=== PATIENT | male | born 1995 | race Caucasian/White ===

== ENCOUNTER 2021-07-31 20:29 | Emergency (ER) | payer OTHER, SELFPAY ==
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
--- NOTE | ~2021-07-31 | XR_ITS ---
EXAMINATION: XR KNEE, LEFT CLINICAL INFORMATION: Left-sided knee pain COMPARISON: None TECHNIQUE: Four views of the left knee. FINDINGS: Bones and soft tissues are normal aside from a small joint effusion. No fracture . Alignment is anatomic. Joint spaces are well maintained. No abnormal soft tissue calcification. XR/XR knee LT 4V IMPRESSION: Small left knee joint effusion. Otherwise negative study.
[2021-07-31 20:44] VITALS: BP 147/86; BP 170/90; PULSE 110; PULSE 91; RESP 16; TEMP 37; O2SAT 100; O2SAT 96; BMI 27.3
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
[2021-07-31 21:22] LABS: MANUAL DIFF FLAG NO
[2021-07-31 21:24] LABS: Basophils Percent Auto 0.4 % (0-2); Eosinophils Absolute Auto 0.3 X10*3/uL (0.0-0.4); Eosinophils Percent Auto 3.8 % (0-4); Hematocrit 41.5 % (42.0-52.0); Hemoglobin 14.4 g/dl (14.0-18.0); Imm Gran Abs Auto 0.03 X10*3/uL (0.00-0.03); Imm Gran Pct Auto 0.4 % (0.0-0.4); Lymphocytes Absolute Auto 1.7 X10*3/uL (1.2-4.9); Mean Corpuscular HGB Conc 34.7 g/dl (31.0-36.0); Mean Corpuscular Hemoglobin 32.2 pg (27.0-33.0); Mean Corpuscular Volume 92.8 fL (80.0-98.0); Monocytes Absolute Auto 0.5 X10*3/uL (0.1-1.2); Monocytes Percent Auto 6.5 % (2-11); Neutrophils Absolute Auto 5.4 x10*3/uL (2.0-8.3); Neutrophils Percent Auto 67.9 % (45-73); Platelet Count 227 X10*3/uL (160-400); Red Blood Count 4.47 X10*6/uL (4.60-5.80); Red Cell Distribution Width 11.4 % (11.0-16.0)
[2021-07-31 21:37] LABS: Alanine Aminotransferase 12 U/L (0-40); Albumin Level 4.5 g/dL (3.5-5.0); Alkaline Phosphatase 74 U/L (39-117); Anion Gap 11 (12-20); Aspartate Amino Transferase 13 U/L (5-37); Bilirubin Total 0.6 mg/dL (0.0-1.0); Blood Urea Nitrogen 12 mg/dL (9-16); Calcium 9.3 mg/dL (8.4-10.2); Carbon Dioxide 25 mmol/L (22-29); Chloride 106 mmol/L (96-108); Creatinine Clr Calc Pharmacy 138.2; Estimated Glomerular Filt Rate > 60; Glucose Random 120 mg/dL (60-115); Magnesium 1.9 mg/dL (1.6-2.6); Potassium 3.3 mmol/L (3.3-5.1); Sodium 139 mmol/L (135-145); Total Protein 7.2 g/dL (6.5-8.0)
[2021-07-31 21:38] LABS: COVID-19 Test Negative (Negative)
[2021-07-31] MEDS: iohexoL 350 MG/ML 100 ML INFUS..BTL IV (22:12)
[2021-07-31] MEDS: Morphine Sulfate Immed Release 15 MG TABLET PO (23:10)
[2021-08-01 00:15] VITALS: BP 124/71; PULSE 65; RESP 16; O2SAT 100
[2021-08-01 00:35] VITALS: RESP 16
[2021-08-01] MEDS: Acetaminophen 325 MG TABLET 650 MG PO (00:35)
== END 2021-08-01 00:41 | disposition home or self-care (01) ==
PROVIDERS: Physician Assistant; Emergency Provider Internal Medicine
DX: S06.0X9A Concussion with loss of consciousness of unspecified duration, initial encounter (principal); S13.4XXA Sprain of ligaments of cervical spine, initial encounter; S29.012A Strain of muscle and tendon of back wall of thorax, initial encounter; S39.012A Strain of muscle, fascia and tendon of lower back, initial encounter; V43.52XA Car driver injured in collision with other type car in traffic accident, initial encounter; W22.11XA Striking against or struck by driver side automobile airbag, initial encounter; M25.462 Effusion, left knee; Y93.89 Activity, other specified; Y92.488 Other paved roadways as the place of occurrence of the external cause; Y99.9 Unspecified external cause status; Z20.822 Contact with and (suspected) exposure to COVID-19
CPT/HCPCS: 70450; 71260; 72125; 73564; 74177; 80053; 83735; 85025; 87635; 99284; Q9967

== ENCOUNTER 2023-06-01 10:40 | Outpatient (AMB) | payer OTHER, SELFPAY ==
[2023-06-01 13:00] VITALS: BP 122/80; PULSE 77; TEMP 37.1; O2SAT 98; BMI 27.5
--- NOTE | 2023-06-01 13:00 | MHC.OFFWIV ---
Intake Vital Signs 06/01/23 13:00 Height 5 ft 8 in Weight 181 lb BMI 27.5 BP 122/80 Blood Pressure Location Lt brachial Position Sitting Pulse 77 Pulse Source Pulse Oximeter Temp 98.8 F Temp Source Oral Pulse Oximetry (%) 98 Oxygen Delivery Method Room Air Intake Visit Reasons: EP, vomiting,nausea (lobby-phone shut off) Intake Note: Pt is here today c/o vomiting and nausea since yesterday Allergies No Known Allergies Allergy (Verified 10/27/22 09:43) Do you need a note to return to daycare/school/sports/work: Yes HPI HPI Comments History of Present Illness Details 27-year-old otherwise healthy male who presents for nausea and vomiting. Patient has been experiencing nausea vomiting times 12 hours. Denies any diarrhea no fever no chills no other symptoms. Patient states last intake was steak and cheese egg roll [facility], [facility] Medical History No known health problems Review of Systems GI Reports nausea and Reports vomiting Physical Exam Vital Signs: Last Vital Signs Temp 98.8 F 06/01/23 13:00 Pulse 77 06/01/23 13:00 BP 122/80 06/01/23 13:00 Pulse Ox 98 06/01/23 13:00 Oxygen Delivery Method Room Air 06/01/23 13:00 BMI result Body Mass Index 27.5 Const General: cooperative, healthy appearing, no acute distress and alert Orientation/consciousness: patient oriented x3 Limitations: no limitations HEENT Head: Yes normal to inspection Ears: hearing grossly normal bilaterally General nose exam: Normal external nose present Resp Effort & Inspection: normal respiratory effort and able to speak in complete sentences Cardio Rate: regular rate GI Other: Question of very mild TTP right lower on deep palpation no rebound tenderness Inspection: Yes normal to inspection Palpation (GI): Soft to palpation and nontender Skin General skin exam: no rashes or lesions noted Neuro General: patient oriented x3 Extrem General: Yes normal to inspection Assessment & Plan Assessment & Plan (1) Gastroenteritis: Code(s): K52.9 - Noninfective gastroenteritis and colitis, unspecified Plan: VSS exam largely unremarkable Question of very mild TTP right lower on deep palpation no rebound tenderness. Suspect gastroenteritis low suspicion for appendicitis still considered recommend symptomatic treatment: Fluids rest and Zofran and destructive patient any worsening pain or symptoms or fever she reports emergency department for further examination and or imaging Medications: New ondansetron 4 mg PO Q8H PRN 7 tabs 0RF nausea and vomiting Coding Level of Care Code Est Pt Level 3 (93098) Diagnoses Gastroenteritis K52.9
== END 2023-06-01 13:33 | disposition home or self-care (01) ==
PROVIDERS: Visit Provider Physician Assistant
DX: K52.9 Noninfective gastroenteritis and colitis, unspecified (principal)
CPT/HCPCS: 99051; 99213